=== PATIENT | male | born 1940 | race Caucasian/White ===

== ENCOUNTER 2018-06-29 14:13 | Inpatient (IN) | payer OTHER ==
--- NOTE | 2018-06-29 15:04 | PDOC ---
History of Present Illness <Winnie Ellison - Last Filed: 06/29/18 15:49> - General History Source: Patient, [facility] Records Exam Limitations: Language Barrier - History of Present Illness Initial Comments: 06/29/18 14:55 The patient is a 77M with a PMH of HLD, GERD, prostate CA, and CVA who presents to the ER from [facility] for a dialysis catheter problem. History is provided by [facility] records and a nurse at the [facility]. The [place] records state that the patient has a blocked permacath which was clotted after his last dialysis. He was last dialyzed 5 days ago. The patient has no acute complaints including CP, SOB, headache, or abdominal pain. <Guy Pugh - Last Filed: 07/04/18 07:22> - General Chief Complaint: Dialysis Shunt Problem Stated Complaint: Dialysis Shunt Problem Time Seen by Provider: 06/29/18 14:25 Past History <Winnie Ellison - Last Filed: 06/29/18 15:49> - Past Medical History Anemia: Yes Cancer: Yes (prostate) COPD: No CHF: No Disorders: Yes (ERSD) Hypercholesterolemia: Yes - Suicide/Smoking/Psychosocial Hx Smoking History: Never smoked Have you smoked in the past 12 months: No Information on smoking cessation initiated: No Hx Alcohol Use: No Drug/Substance Use Hx: No Substance Use Type: None <Guy Pugh - Last Filed: 07/04/18 07:22> - Past Medical History Allergies/Adverse Reactions: Allergies Allergy/AdvReac Type Severity Reaction Status Date / Time No Known Allergies Allergy Verified 06/29/18 14:38 Home Medications: Ambulatory Orders Acetaminophen [Acetaminophen 8 Hour] 650 mg PO Q6H PRN 06/29/18 Ascorbic Acid [Vitamin C -] 500 mg PO DAILY 06/29/18 Aspirin [ASA -] 1 tab PO DAILY 06/29/18 Atorvastatin Ca [Lipitor] 40 mg PO HS 06/29/18 Bicalutamide 50 mg PO DAILY 06/29/18 Bisacodyl [Correctol] 5 mg PO Q72H 06/29/18 Calcium Acetate [Phoslo -] 667 mg PO TIDCM 06/29/18 Collagenase Clostridium Hist. [Santyl] 1 applic TP BID 06/29/18 Famotidine 20 mg PO DAILY 06/29/18 Ferrous Sulfate 325 mg PO DAILY 06/29/18 Mineral Oil/Petrolat,Wht/Water [Eucerin (Small Jar) -] 1 applic TP TID 06/29/18 Multivitamins [Multivit ([facility] Formul[facility])] 1 tab PO DAILY 06/29/18 Nystatin Ointment [Mycostatin Ointment -] 1 applic TP BID 06/29/18 Sennosides [Senna] 8.6 mg PO HS 06/29/18 Vitamin B Comp W-C [Nephro-Francis -] 1 tablet PO DAILY 06/29/18 Zinc Sulfate 220 mg PO DAILY 06/29/18 Review of Systems - Review of Systems Able to Perform ROS?: No (Limited) Is the patient limited Hong Konger proficient: Yes <Guy Pugh - Last Filed: 07/04/18 07:22> *Physical Exam - Vital Signs Last Vital Signs Temp Pulse Resp BP Pulse Ox 97.4 F L 84 16 133/80 100 06/29/18 14:13 06/29/18 14:13 06/29/18 14:13 06/29/18 14:13 06/29/18 14:13 <Winnie Ellison - Last Filed: 06/29/18 15:49> - Vital Signs Last Vital Signs Temp Pulse Resp BP Pulse Ox 97.4 F L 84 16 133/80 100 06/29/18 14:13 06/29/18 14:13 06/29/18 14:13 06/29/18 14:13 06/29/18 14:13 - Physical Exam Comments: 06/29/18 15:11 GENERAL: Well developed, well nourished. Awake and alert. No acute distress. HEENT: Normocephalic, atraumatic. Hearing grossly normal. Moist mucous membranes. PERRLA, EOMI. No conjunctival pallor. Sclera are non-icteric. NECK: Supple. Full ROM. No JVD. CARDIOVASCULAR: Tachycardic with regular rhythm. No murmurs, rubs, or gallops. PULMONARY: No evidence of respiratory distress. Lungs clear to auscultation bilaterally. No wheezing, rales or rhonchi. ABDOMINAL: Soft. Non-tender. Non-distended. No rebound or guarding. GENITOURINARY: No CVA tenderness bilaterally. MUSCULOSKELETAL: Permacath located in R chest wall without surrounding edema or erythema. Normal range of motion at all joints. No bony deformities or tenderness. EXTREMITIES: No cyanosis. No clubbing. No edema. No calf tenderness or swelling. SKIN: Warm and dry. Normal capillary refill. No rashes. No jaundice. NEUROLOGICAL: Alert, awake, appropriate. Cranial nerves 2-12 grossly intact. Normal speech. PSYCHIATRIC: Cooperative. Good eye contact. Appropriate mood and affect. <Guy Pugh - Last Filed: 07/04/18 07:22> Heart Score/ECG Review #1 ECG reviewed & interpreted by me at: 15:44 General ECG Interpretation: Sinus Rhythm, Normal Rate, Normal Intervals, No acute ischemic changes Compared to previous ECG there are: Previous ECG unavail 06/29/18 15:44 A-fib vent rate 80 [place] - QRS 84 QTc 410 No STD or KAYLA No signs of acute ischemia <Guy Pugh - Last Filed: 07/04/18 07:22> ED Treatment Course - LABORATORY CBC & Chemistry Diagram: 06/29/18 14:45 06/29/18 14:45 - ADDITIONAL ORDERS Additional order review: Laboratory Results 06/29/18 06/29/18 14:45 14:45 PT with INR 13.10 H INR 1.11 H Sodium 135 L Potassium 5.5 H Chloride 102 Carbon Dioxide 23 Anion Gap 10 BUN 81 H Creat Clearance w eGFR 6.02 Random Glucose 125 H Calcium 7.3 L Total Bilirubin 0.5 AST 24 ALT < 6 L Alkaline Phosphatase 129 H Total Protein 7.0 Albumin 2.0 L 06/29/18 14:45 RBC 2.70 L MCV 91.0 MCHC 33.1 RDW 16.5 H MPV 8.3 Neutrophils % 74.3 Lymphocytes % 14.0 Monocytes % 8.5 Eosinophils % 2.6 Basophils % 0.6 - Consult/PCP Time Called: 15:00 (Paged Dr. Winsome crowe) - Additional Consults Time Called: 15:42 (Repaged Dr. Winsome Crowe) Time Called: 15:45 (Paged Dr. De La Cruz's service. They state he is in the OR currently but will send a page out. ) Consult/PCP: Albin De La Cruz <Winnie Ellison - Last Filed: 06/29/18 15:49> - LABORATORY CBC & Chemistry Diagram: 06/30/18 07:00 07/01/18 08:20 <Guy Pugh - Last Filed: 07/04/18 07:22> Medical Decision Making - Medical Decision Making 06/29/18 15:12 The patient is a 77M with a PMH of HLD and GERD who presents [facility] the ER from a [facility] for a clotted permacath. Pt's front desk, Dr. Prieto, has been called to obtain more information from the patient as information is limited form NH papers and nurses. Pending call back. EKG ordered as well as labs d/t pt's 5 days without dialysis. Pending labs and EKG. 06/29/18 16:10 K is 5.5. No EKG changes resembling hyperK. Dr. Prieto paged x 3. Dr. De La Cruz paged to declot permacath. 06/29/18 17:21 Attending d/w Dr. Alcantar, partner of pt's front desk, who agrees for admission for change in permacath and dialysis. Will microblog for admission. 06/29/18 18:42 Attending endorsed pt to [facility] for admission under Dr. Chakraborty. <Guy Pugh - Last Filed: 07/04/18 07:22> *DC/Admit/Observation/Transfer <Winnie Ellison - Last Filed: 06/29/18 15:49> - Discharge Dispostion Decision to Admit order: Yes <Guy Pugh - Last Filed: 07/04/18 07:22> Diagnosis at time of Disposition: Dialysis catheter clot or failure - Discharge Dispostion Disposition: [facility] Condition at time of disposition: Stable
--- NOTE | 2018-06-29 15:08 | PDOC ---
Attending Attestation - HPI HPI: The patient is a 77 year old male with a PMHx of HLD, GERD, prostate CA, and CVA who presents to the ER from [facility] for clogged dialysis Permacath. As per [place] records, patient has had a blocked Permacath since being dialyzed 5 days ago. History limited due to patients medical condition. <Winnie Ellison - Last Filed: 06/29/18 15:58> - Resident Resident Name: Guy Pugh - ED Attending Attestation I have performed the following: I have examined & evaluated the patient, The case was reviewed & discussed with the resident, I agree w/resident's findings & plan, Exceptions are as noted - Physicial Exam PE: 06/29/18 17:01 Patient is awake alert, afebrile, nontoxic appearing Normocephalic, atraumatic CTA Right chest Vas-Cath is noted without evidence of surrounding erythema or purulent discharge; Irregularly irregular Abdomen soft, nontender, nondistended Right lower extremity is hyperpigmented, warm to touch - Medical Decision Making 06/29/18 17:02 Patient is 77-year-old male with multiple comorbidities who presents to the ER with a clogged dialysis catheter. Is no indication for emergent dialysis. Case is 5.5 there is no evidence of acute pulmonary edema. There is no evidence of severe acidosis or uremia. We'll consult vascular surgery. Likely admission <Vernon Goss - Last Filed: 06/29/18 17:03>
[2018-06-29 15:22] LABS: BASO % 0.6 % (0-2.0); EOS % 2.6 % (0-4.5); HEMATOCRIT 24.5 % (35.4-49); HEMOGLOBIN 8.1 GM/dL (11.7-16.9); MCH 30.1 pg (25.7-33.7); MCHC 33.1 g/dl (32.0-35.9); MEAN PLT VOLUME 8.3 fl (7.5-11.1); MONO % 8.5 % (3.8-10.2); NEUT % 74.3 % (42.8-82.8); PLATELET COUNT 262 K/MM3 (134-434); RDW 16.5 % (11.9-15.9); WHITE BLOOD COUNT 7.7 K/mm3 (4.0-10.0)
[2018-06-29 15:23] LABS: INR 1.11 (0.83-1.09); PROTHROMBIN TIME (PATIENT) 13.1 SEC (9.7-13.0)
[2018-06-29 15:41] LABS: ALK PHOS 129 U/L (45-117); ANION GAP 10 MMOL/L (8-16); BILIRUBIN,TOTAL 0.5 mg/dL (0.2-1); BLOOD UREA NITROGEN 81 mg/dL (7-18); CALCIUM 7.3 mg/dL (8.5-10.1); CHLORIDE 102 mmol/L (98-107); CO2 23 mmol/L (21-32); GLUCOSE,RANDOM 125 mg/dL (74-106); POTASSIUM 5.5 mmol/L (3.5-5.1); SGOT/AST 24 U/L (15-37); SGPT/ALT < 6 U/L (13-61); SODIUM 135 mmol/L (136-145)
[2018-06-29 15:45] LABS: CREATININE 8.6 mg/dL (0.55-1.3)
--- NOTE | 2018-06-29 17:34 | PN ---
Progress Note (short form) - Note Progress Note: Vascular Surgery Permacath is malfunctioning. Will do permacath exchange jane. NPO past midnight. Albin barriga DO
--- NOTE | 2018-06-29 22:11 | HP ---
CHIEF COMPLAINT: Permacath blockage Customs Import Specialist: Dr. Schumacher HISTORY OF PRESENT ILLNESS: 77 year old male presents to the ED from [facility] for malfunctioning permacath. Patient is Czech-speaking and minimally verbal, history obtained from chart. 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 Patient is now in ESRD and on hemodialysis and has a suprapubic catheter. Patient fell out of bed one month ago and sustained a left hip fracture then underwent a left hip hemiarthroplsty on 05/15/18 at [facility]. Patient was discharged on 05/25/18 to [facility] rehab. He was re-admitted to the hospital on 06/16/18 dislocation of his left hip. He uderwent left hip adductor tenotomy with open reduction and revision of left hip hemiarthroplasty on 06/20/18. He was discharged back to rehab on 06/22/18. He was readmitted to the hospital the next day when deep wound cultures from the OR returned positive for MRSA. He was evaluated by ID and treated with IV vanco. He was d/patrica back to rehab 2 days later on 06/25/18. Rehab reporting that permacath non-functioning. Upon admission to ED, VSS, labs significant for elevated K at 5.5, BUN/Cr 81/ 8.6. ECG shows a-fib, T wave inversions in V1 and V2, and CXR unremarkable. Last dialyzed 5 days ago. Patient scheduled for permacath replacement tomorrow with vascular surgeon Dr. De La Cruz. Denies pain, sob, chest pain, n/v/d. Recent Travel: No PAST MEDICAL HISTORY: ESRD CVA Dementia Iron deficieny anemia HLD GERD Prostate Cancer PAST SURGICAL HISTORY: Left hip hemiarthroplasty 05/15/18 Left hip adductor tenotomy with open reduction and revision 06/20/18 Allergies No Known Allergies Allergy (Verified 06/29/18 14:38) HOME MEDICATIONS: REVIEW OF SYSTEMS Unable to obtain PHYSICAL EXAMINATION Vital Signs - 24 hr 06/29/18 14:13 Temperature 97.4 F L Pulse Rate 84 Respiratory 16 Rate Blood Pressure 133/80 O2 Sat by Pulse 100 Oximetry (%) GENERAL: Appear frail, awake, A&Ox 1 to person only, in no acute distress. HEAD: Normal with no signs of trauma. EYES: Pupils equal, round and reactive to light, extraocular movements intact, sclera anicteric, conjunctiva clear. No lid lag. EARS, NOSE, THROAT: nares patent, oropharynx clear without exudates. Moist mucous membranes. NECK: Normal range of motion, supple without lymphadenopathy, JVD, or masses. LUNGS: Breath sounds clear to auscultation bilaterally, slighty labored breathing HEART: Regular rate and rhythm, normal S1 and S2 + Grade III murmur ABDOMEN: Soft, nontender, not distended, normoactive bowel sounds, no guarding, no rebound, no masses. No hepatomegaly or splenomegaly. +suprapubic catheter, draining dark yellow urine MUSCULOSKELETAL: +Permacath to R chest wall covered with dpd, no drainage or edema to surrounding tissue, +hip abduction pillow between legs. UPPER EXTREMITIES: 2+ pulses, warm, well-perfused. No cyanosis. No clubbing. No peripheral edema. LOWER EXTREMITIES: Hyperpigmentation of RLL, 2+ pulses, warm, well-perfused. No calf tenderness. No peripheral edema. NEUROLOGICAL: No facial droop, tongue midline PSYCHIATRIC: Pleasant Good eye contact. SKIN: Warm, dry, normal turgor, no rashes or lesions noted, normal capillary refill. Laboratory Results - last 24 hr 06/29/18 06/29/18 06/29/18 14:45 14:45 14:45 WBC 7.7 RBC 2.70 L Hgb 8.1 L Hct 24.5 L MCV 91.0 MCH 30.1 MCHC 33.1 RDW 16.5 H Plt Count 262 MPV 8.3 Absolute Neuts (auto) 5.7 Neutrophils % 74.3 Lymphocytes % 14.0 Monocytes % 8.5 Eosinophils % 2.6 Basophils % 0.6 Nucleated RBC % 0 PT with INR 13.10 H INR 1.11 H Sodium 135 L Potassium 5.5 H Chloride 102 Carbon Dioxide 23 Anion Gap 10 BUN 81 H Creatinine 8.6 H* Creat Clearance w eGFR 6.02 Random Glucose 125 H Calcium 7.3 L Total Bilirubin 0.5 AST 24 ALT < 6 L Alkaline Phosphatase 129 H Total Protein 7.0 Albumin 2.0 L Blood Type Antibody Screen 06/29/18 14:45 WBC RBC Hgb Hct MCV MCH MCHC RDW Plt Count MPV Absolute Neuts (auto) Neutrophils % Lymphocytes % Monocytes % Eosinophils % Basophils % Nucleated RBC % PT with INR INR Sodium Potassium Chloride Carbon Dioxide Anion Gap BUN Creatinine Creat Clearance w eGFR Random Glucose Calcium Total Bilirubin AST ALT Alkaline Phosphatase Total Protein Albumin Blood Type B POSITIVE Antibody Screen Negative ECG -Atrial Fibrilation Vent rate 79 QRS 84 QT/QTc 358/410 CXR Large heart, sclerotic knob, prominent barb, fluid in the horizontal fissure and right jugular line with tip at junction of SVC and right atrium. No sign of infiltrate or failure. ASSESSMENT/PLAN: 77 year old male with a PMH significant for Dementia, CVA and advanced prostate cancer with mets to bladder, hydronephrosis presented to the ED with non- functioning permacath. Patient admitted for corrective surgery tomorrow. Permacath Blockage -replacement by Dr. Albin De La Cruz scheduled for tomorrow. -NPO after midnight ESRD -On hemodialysis, last dialysis 5 days ago -Schedule once permacath replaced A-Fib -?New onset, no prior study available and no mention of existing a-fib in chart. -On ASA 81mg -repeat ECG ordered -echo ordered -CHADS2 Score = 3, consider additional anticoagulation after procedure -Cardiac consult ordered Hyperkalemia -K 5.5 in ED -Kayexalate 15 mg x 1 -repeat BMP ordered PU right buttocks -Santyl BID -T&P q2hrs CVA -On ASA 81 mg -Hold tomorrow for procedure Iron deficiency anemia -H&H 8.09/29.5 -Continue FeSO4 325 qday -Monitor CBC HLD -Continue Atorvastatin 40 mg QHS GERD -Continue Zantic 150 mg Prostate Cancer -Continue Casodex 50 mg PO qday Constipation -Senna 8.6 qhs -Bisacodyl 5 mg q 72 hrs Tinea Pedis -Nystatin ointment to b/l feet BID Supplements -Multivitamin -Vitamin C 500 mg -Ca Acetate 667 mg TID -Nephro-radha -Zinc Sulfate 220 mg FEN --NPO until surgery --Electrolytes replete as indicated --Puree with nectar thickened liquid DVT Prophylaxis --Hold chemical prophylaxis for sx tomorrow Dispo: pt currently requires further inpatient care. FULL CODE Visit type - Emergency Visit Emergency Visit: Yes ED Registration Date: 06/29/18 Care time: The patient presented to the Emergency Department on the above date and was hospitalized for further evaluation of their emergent condition. - New Patient This patient is new to me today: Yes Date on this admission: 06/30/18 - Critical Care Critical Care patient: No
[2018-06-29] MEDS ORDERED: ACETAMINOPHEN 325 MG TABLET (FP) PO PRN (22:37)
[2018-06-30] MEDS ORDERED: SODIUM POLYSTYRENE SULFONATE 15 GM/60 ML BOTTLE PO ONE (00:36)
[2018-06-30] MEDS ORDERED: SODIUM POLYSTYRENE SULFONATE 15 GM/60 ML BOTTLE ONE (01:44)
[2018-06-30] MEDS: MINERAL OIL/PETROLAT/WATER TOPICAL CREAM 113 GM JAR TP SCH ×2 (06:55→13:38)
[2018-06-30] MEDS: CALCIUM ACETATE 667 MG CAPSULE (FP) PO SCH ×3 (08:22→17:15)
[2018-06-30 08:33] LABS: HEMATOCRIT 24.3 % (35.4-49); MCH 30.2 pg (25.7-33.7); MEAN CELL VOLUME 91.6 fl (80-96); MEAN PLT VOLUME 8.2 fl (7.5-11.1); PLATELET COUNT 231 K/MM3 (134-434); RBC 2.65 M/mm3 (4.00-5.60); WHITE BLOOD COUNT 6.5 K/mm3 (4.0-10.0)
[2018-06-30 09:15] LABS: ANION GAP 11 MMOL/L (8-16); BLOOD UREA NITROGEN 86 mg/dL (7-18); CALCIUM 7.3 mg/dL (8.5-10.1); CHLORIDE 102 mmol/L (98-107); CO2 24 mmol/L (21-32); GLUCOSE,RANDOM 77 mg/dL (74-106); POTASSIUM 5.6 mmol/L (3.5-5.1); SODIUM 136 mmol/L (136-145)
[2018-06-30 09:21] LABS: CREATININE 9.2 mg/dL (0.55-1.3)
[2018-06-30] MEDS ORDERED: PNEUMOC 13-VAL CONJ-DIP CRM/PF 0.5 ML DISP.SYRIN IM ONE (10:00)
[2018-06-30] MEDS ORDERED: BICALUTAMIDE 50 MG TABLET (FP) PO SCH (10:00)
[2018-06-30] MEDS ORDERED: ZINC SULFATE 220 MG CAPSULE (FP) PO SCH (10:00)
[2018-06-30] MEDS ORDERED: BISACODYL 5 MG TABLET.DR (FP) PO SCH (10:00)
[2018-06-30] MEDS ORDERED: NYSTATIN 100000 UNIT/GM TOPICAL OINTMENT 15 GM TUBE TP SCH (10:00)
[2018-06-30] MEDS ORDERED: FERROUS SO4 325 MG TABLET (FP) PO SCH (10:00)
[2018-06-30] MEDS ORDERED: MULTIVITAMINS (DAILY MVI) TABLET (FP) PO SCH (10:00)
[2018-06-30] MEDS ORDERED: ASCORBIC ACID 500 MG TABLET (FP) PO SCH (10:00)
[2018-06-30] MEDS ORDERED: COLLAGENASE CLOSTRIDIUM HIST. 30 GRAMS TUBE TP SCH (10:00)
[2018-06-30] MEDS ORDERED: RANITIDINE HCL 150 MG TABLET (FP) PO SCH (10:00)
[2018-06-30] MEDS ORDERED: ASPIRIN 81 MG CHEWABLE TABLETS PO SCH (10:00)
[2018-06-30] MEDS ORDERED: VITAMIN B COMP W-C 1 EA TABLET PO SCH (10:00)
--- NOTE | 2018-06-30 10:47 | PN ---
Progress Note (short form) - Note Progress Note: events noted Confused, dementia Vital Signs - 24 hr 06/29/18 06/29/18 06/29/18 14:13 18:38 22:12 Temperature 97.4 F L Pulse Rate 84 Pulse Rate [ 88 Right] Respiratory 16 16 Rate Blood Pressure 133/80 Blood Pressure 137/87 [Left] O2 Sat by Pulse 95 96 95 Oximetry (%) 06/29/18 06/30/18 06/30/18 22:32 00:55 02:55 Temperature 98 F 98.4 F Pulse Rate Pulse Rate [ 81 82 85 Right] Respiratory 16 21 H 17 Rate Blood Pressure Blood Pressure 141/90 131/65 123/63 [Left] O2 Sat by Pulse 96 98 Oximetry (%) 06/30/18 06/30/18 05:34 05:55 Temperature 98.3 F Pulse Rate 92 H Pulse Rate [ Right] Respiratory 20 Rate Blood Pressure 120/58 L Blood Pressure [Left] O2 Sat by Pulse 93 L Oximetry (%) Current Medications Generic Name Dose Route Start Last Admin Trade Name Freq PRN Reason Stop Dose Admin Acetaminophen 650 mg 06/29/18 22:37 Tylenol - PO Q6H PRN PAIN LEVEL 1-5 Ascorbic Acid 500 mg 06/30/18 10:00 06/30/18 10:46 Vitamin C - PO Not Given DAILY [facility] Aspirin 81 mg 06/30/18 10:00 06/30/18 10:47 Asa - PO Not Given DAILY [facility] Atorvastatin Calcium 40 mg 06/30/18 22:00 Lipitor - PO HS [facility] Bicalutamide 50 mg 06/30/18 10:00 06/30/18 10:47 Casodex - PO Not Given DAILY [facility] Bisacodyl 5 mg 06/30/18 10:00 06/30/18 10:46 Dulcolax - PO Not Given Q3D@1000 [facility] Calcium Acetate 667 mg 06/30/18 08:00 06/30/18 08:22 Phoslo - PO Not Given TIDCM [facility] Collagenase 1 applic 06/30/18 10:00 Santyl - TP BID [facility] Protocol Ferrous Sulfate 325 mg 06/30/18 10:00 06/30/18 10:46 Feosol - PO Not Given DAILY [facility] Multi-Ingredient Lotion 1 applic 06/30/18 06:00 06/30/18 06:55 Eucerin (Small Jar) - TP 1 applic TID [facility] Administration Multivit/Ca Carb/B Cmplx/FA/Prenat 1 tablet 06/30/18 10:00 06/30/18 10:46 Nephro-Francis - PO Not Given DAILY [facility] Multivitamins/Minerals/Vitamin C 1 tab 06/30/18 10:00 06/30/18 10:46 Tab-A-Vit - PO Not Given DAILY [facility] Nystatin 1 applic 06/30/18 10:00 Mycostatin Ointment - TP BID [facility] Ranitidine HCl 150 mg 06/30/18 10:00 06/30/18 10:46 Zantac - PO Not Given DAILY [facility] Senna 1 tab 06/30/18 22:00 Senna - PO HS [facility] Zinc Sulfate 220 mg 06/30/18 10:00 06/30/18 10:46 Orazinc - PO Not Given DAILY [facility] Laboratory Results - last 24 hr 06/29/18 06/29/18 06/29/18 14:45 14:45 14:45 WBC 7.7 RBC 2.70 L Hgb 8.1 L Hct 24.5 L MCV 91.0 MCH 30.1 MCHC 33.1 RDW 16.5 H Plt Count 262 MPV 8.3 Absolute Neuts (auto) 5.7 Neutrophils % 74.3 Lymphocytes % 14.0 Monocytes % 8.5 Eosinophils % 2.6 Basophils % 0.6 Nucleated RBC % 0 PT with INR 13.10 H INR 1.11 H Sodium 135 L Potassium 5.5 H Chloride 102 Carbon Dioxide 23 Anion Gap 10 BUN 81 H Creatinine 8.6 H* Creat Clearance w eGFR 6.02 Random Glucose 125 H Calcium 7.3 L Total Bilirubin 0.5 AST 24 ALT < 6 L Alkaline Phosphatase 129 H Total Protein 7.0 Albumin 2.0 L Blood Type Antibody Screen 06/29/18 06/30/18 06/30/18 14:45 00:54 07:00 WBC 6.5 RBC 2.65 L Hgb 8.0 L Hct 24.3 L MCV 91.6 MCH 30.2 MCHC 33.0 RDW 17.0 H Plt Count 231 MPV 8.2 Absolute Neuts (auto) Neutrophils % Lymphocytes % Monocytes % Eosinophils % Basophils % Nucleated RBC % PT with INR INR Sodium Potassium Chloride Carbon Dioxide Anion Gap BUN Creatinine Creat Clearance w eGFR Random Glucose Calcium Total Bilirubin AST ALT Alkaline Phosphatase Total Protein Albumin Blood Type B POSITIVE B POSITIVE Antibody Screen Negative 06/30/18 07:00 WBC RBC Hgb Hct MCV MCH MCHC RDW Plt Count MPV Absolute Neuts (auto) Neutrophils % Lymphocytes % Monocytes % Eosinophils % Basophils % Nucleated RBC % PT with INR INR Sodium 136 Potassium 5.6 H Chloride 102 Carbon Dioxide 24 Anion Gap 11 BUN 86 H Creatinine 9.2 H* Creat Clearance w eGFR 5.57 Random Glucose 77 Calcium 7.3 L Total Bilirubin AST ALT Alkaline Phosphatase Total Protein Albumin Blood Type Antibody Screen S1 and S2 regular Lungs sounds decreased Abdomen soft, nontender No edema Plan For removal of permacath Check blood cultures patient will need dialysis after permacath removal/exchange
--- NOTE | 2018-06-30 12:15 | EKG ---
Test Reason : Blood Pressure : / mmHG Vent. Rate : 084 BPM Atrial Rate : 441 BPM P-R Int : 000 ms QRS Dur : 090 ms QT Int : 362 ms P-R-T Axes : 000 -02 009 degrees QTc Int : 427 ms ATRIAL FIBRILLATION ABNORMAL ECG WHEN COMPARED WITH ECG OF 30-JUN-2018 00:23, BORDERLINE CRITERIA FOR ANTEROSEPTAL INFARCT ARE NO LONGER PRESENT Confirmed by MARK MASTERSON MD ([id number]) on 06/30/2018 12:15:01 PM Referred By: Confirmed By:MARK MASTERSON MD
--- NOTE | 2018-06-30 12:17 | EKG ---
Test Reason : Blood Pressure : / mmHG Vent. Rate : 079 BPM Atrial Rate : 156 BPM P-R Int : 000 ms QRS Dur : 084 ms QT Int : 358 ms P-R-T Axes : 000 000 023 degrees QTc Int : 410 ms ATRIAL FIBRILLATION NONSPECIFIC ST ABNORMALITY ABNORMAL ECG NO PREVIOUS ECGS AVAILABLE Confirmed by MARK MASTERSON MD ([id number]) on 06/30/2018 12:17:08 PM Referred By: Confirmed By:MARK MASTERSON MD
--- NOTE | 2018-06-30 15:09 | CONSULT ---
Consultation: CONSULT REQUEST: Nephrology Consult HISTORY OF PRESENT ILLNESS: 77yo M with significant history of ESRD, dementia, CVA, anemia, and Prostate Ca (Mets to bladder) who presented to the ED from [facility] for malfunctioning permacath device. Pt's HPI is difficult to obtain due to dementia and most information gathered from chart. Pt is minimally verbal, speaks [place] Islander, and is only oriented to self. Pt's last HD was 5 days ago and it was noted on ED labs for elevation of K+ to 5.5 with T-wave inversions. Dr. De La Cruz (vascular) had been consulted for the access and is planning to perform his permacath exchange today. PMHx: ESRD CVA Dementia Anemia (iron deficiency and anemia of chronic dz) HLD GERD Prostate Ca (mets to bladder) PSHx: L hip hemiarthroplasty (05/2018) L Hip adductor open reduction and revision (06/2018) SoHx: Unobtainable Allergies: NKDA REVIEW OF SYSTEMS: Unable to obtain due to dementia PHYSICAL EXAMINATION Vital Signs - 24 hr 06/29/18 06/29/18 06/29/18 18:38 22:12 22:32 Temperature 98 F Pulse Rate Pulse Rate [ 88 81 Right] Respiratory 16 16 Rate Blood Pressure Blood Pressure 137/87 141/90 [Left] O2 Sat by Pulse 96 95 96 Oximetry (%) 06/30/18 06/30/18 06/30/18 00:55 02:55 05:34 Temperature 98.4 F 98.3 F Pulse Rate 92 H Pulse Rate [ 82 85 Right] Respiratory 21 H 17 20 Rate Blood Pressure 120/58 L Blood Pressure 131/65 123/63 [Left] O2 Sat by Pulse 98 Oximetry (%) 06/30/18 06/30/18 06/30/18 05:55 09:00 10:00 Temperature 97.8 F Pulse Rate 86 Pulse Rate [ Right] Respiratory 20 Rate Blood Pressure 129/66 Blood Pressure [Left] O2 Sat by Pulse 93 L 95 Oximetry (%) GENERAL: NAD, awake, speaks minimally, oriented to self only, laying in bed. HEENT: Nc/AT, MMM, sclera anicteric NECK: No JVD LUNGS: CTA bilaterally however poor inspiratory effort. No wheezes, and no crackles. No accessory muscle use. HEART: RRR, normal S1 and S2 without murmur ABDOMEN: Soft, Nt/ND, normoactive BS, no guarding MUSCULOSKELETAL: Limited ROM in upper extremity EXTREMITIES: 2+ DP pulses, warm, well-perfused. No peripheral edema. SKIN: Warm, dry, no rashes; ankle offloaders noted Laboratory Results - last 24 hr 06/29/18 06/29/18 06/29/18 14:45 14:45 14:45 WBC 7.7 RBC 2.70 L Hgb 8.1 L Hct 24.5 L MCV 91.0 MCH 30.1 MCHC 33.1 RDW 16.5 H Plt Count 262 MPV 8.3 Absolute Neuts (auto) 5.7 Neutrophils % 74.3 Lymphocytes % 14.0 Monocytes % 8.5 Eosinophils % 2.6 Basophils % 0.6 Nucleated RBC % 0 PT with INR 13.10 H INR 1.11 H Sodium 135 L Potassium 5.5 H Chloride 102 Carbon Dioxide 23 Anion Gap 10 BUN 81 H Creatinine 8.6 H* Creat Clearance w eGFR 6.02 Random Glucose 125 H Calcium 7.3 L Total Bilirubin 0.5 AST 24 ALT < 6 L Alkaline Phosphatase 129 H Total Protein 7.0 Albumin 2.0 L Blood Type Antibody Screen 06/29/18 06/30/18 06/30/18 14:45 00:54 07:00 WBC 6.5 RBC 2.65 L Hgb 8.0 L Hct 24.3 L MCV 91.6 MCH 30.2 MCHC 33.0 RDW 17.0 H Plt Count 231 MPV 8.2 Absolute Neuts (auto) Neutrophils % Lymphocytes % Monocytes % Eosinophils % Basophils % Nucleated RBC % PT with INR INR Sodium Potassium Chloride Carbon Dioxide Anion Gap BUN Creatinine Creat Clearance w eGFR Random Glucose Calcium Total Bilirubin AST ALT Alkaline Phosphatase Total Protein Albumin Blood Type B POSITIVE B POSITIVE Antibody Screen Negative 06/30/18 07:00 WBC RBC Hgb Hct MCV MCH MCHC RDW Plt Count MPV Absolute Neuts (auto) Neutrophils % Lymphocytes % Monocytes % Eosinophils % Basophils % Nucleated RBC % PT with INR INR Sodium 136 Potassium 5.6 H Chloride 102 Carbon Dioxide 24 Anion Gap 11 BUN 86 H Creatinine 9.2 H* Creat Clearance w eGFR 5.57 Random Glucose 77 Calcium 7.3 L Total Bilirubin AST ALT Alkaline Phosphatase Total Protein Albumin Blood Type Antibody Screen Active Medications Generic Name Dose Route Start Last Admin Trade Name Freq PRN Reason Stop Dose Admin Acetaminophen 650 mg 06/29/18 22:37 Tylenol - PO Q6H PRN PAIN LEVEL 1-5 Ascorbic Acid 500 mg 06/30/18 10:00 06/30/18 10:46 Vitamin C - PO Not Given DAILY [facility] Aspirin 81 mg 06/30/18 10:00 06/30/18 10:47 Asa - PO Not Given DAILY [facility] Atorvastatin Calcium 40 mg 06/30/18 22:00 Lipitor - PO HS [facility] Bicalutamide 50 mg 06/30/18 10:00 06/30/18 10:47 Casodex - PO Not Given DAILY [facility] Bisacodyl 5 mg 06/30/18 10:00 06/30/18 10:46 Dulcolax - PO Not Given Q3D@1000 [facility] Calcium Acetate 667 mg 06/30/18 08:00 06/30/18 12:31 Phoslo - PO Not Given TIDCM [facility] Collagenase 1 applic 06/30/18 10:00 06/30/18 13:37 Santyl - TP 1 applic BID [facility] Administration Protocol Ferrous Sulfate 325 mg 06/30/18 10:00 06/30/18 10:46 Feosol - PO Not Given DAILY [facility] Multi-Ingredient Lotion 1 applic 06/30/18 06:00 06/30/18 13:38 Eucerin (Small Jar) - TP 1 applic TID [facility] Administration Multivit/Ca Carb/B Cmplx/FA/Prenat 1 tablet 06/30/18 10:00 06/30/18 10:46 Nephro-Francis - PO Not Given DAILY [facility] Multivitamins/Minerals/Vitamin C 1 tab 06/30/18 10:00 06/30/18 10:46 Tab-A-Vit - PO Not Given DAILY [facility] Nystatin 1 applic 06/30/18 10:00 06/30/18 13:37 Mycostatin Ointment - TP 1 applic BID [facility] Administration Ranitidine HCl 150 mg 06/30/18 10:00 06/30/18 10:46 Zantac - PO Not Given DAILY [facility] Senna 1 tab 06/30/18 22:00 Senna - PO HS [facility] Zinc Sulfate 220 mg 06/30/18 10:00 06/30/18 10:46 Orazinc - PO Not Given DAILY [facility] ASSESSMENT/PLAN: ESRD on HD Permacath malfunction Hyperkalemia Atrial fibrillation Anemia HLD Prostate Ca --Vascular surgery to exchange permacath today --Once exchange is performed and new access established can plan for HD today --Monitor K+ with AM labs post HD session --Continue rest of mgmt per primary team Dispo: HD for today. Thank you for this consultative opportunity. Case discussed with Dr. Katharine Vargas, DO - IM PGY-2 Visit type - Emergency Visit Emergency Visit: Yes ED Registration Date: 06/29/18 Care time: The patient presented to the Emergency Department on the above date and was hospitalized for further evaluation of their emergent condition. - New Patient This patient is new to me today: Yes Date on this admission: 06/30/18 - Critical Care Critical Care patient: No
[2018-06-30] MEDS ORDERED: SODIUM CHLORIDE 250 ML IV PRN ×2 (15:30→22:56)
--- NOTE | 2018-06-30 15:57 | CON.CARD ---
Consult Consult Specialty:: Cardiology Referred by:: Aden Reason for Consultation:: afib - History of Present Illness Chief Complaint: blocked permacath History of Present Illness: 77M h/o dementia, CVA, ESRD on HD, anemia, HLD p/w malfunctioning permacath, afib on EKG. Pt unable to give history due to mental status, unclear if afib is new dx. Not on anticoagulation. Of note had history of recent fall from bed with hip fracture one month ago. Has permacath replacement today. Also noted to have K 5.5 in ED, received kayexalate. - Alcohol/Substance Use Hx Alcohol Use: No - Smoking History Smoking history: Never smoked Have you smoked in the past 12 months: No Home Medications - Allergies Allergies/Adverse Reactions: Allergies Allergy/AdvReac Type Severity Reaction Status Date / Time No Known Allergies Allergy Verified 06/29/18 14:38 - Home Medications Home Medications: Ambulatory Orders Acetaminophen [Acetaminophen 8 Hour] 650 mg PO Q6H PRN 06/29/18 Ascorbic Acid [Vitamin C -] 500 mg PO DAILY 06/29/18 Aspirin [ASA -] 1 tab PO DAILY 06/29/18 Atorvastatin Ca [Lipitor] 40 mg PO HS 06/29/18 Bicalutamide 50 mg PO DAILY 06/29/18 Bisacodyl [Correctol] 5 mg PO Q72H 06/29/18 Calcium Acetate [Phoslo -] 667 mg PO TIDCM 06/29/18 Collagenase Clostridium Hist. [Santyl] 1 applic TP BID 06/29/18 Famotidine 20 mg PO DAILY 06/29/18 Ferrous Sulfate 325 mg PO DAILY 06/29/18 Mineral Oil/Petrolat,Wht/Water [Eucerin] 1 applic TP TID 06/29/18 Multivitamins [Tab-A-Vit -] 1 tab PO DAILY 06/29/18 Nystatin Ointment [Mycostatin Ointment -] 1 applic TP BID 06/29/18 Sennosides [Senna] 8.6 mg PO HS 06/29/18 Vitamin B Comp W-C [Nephro-Francis -] 1 tablet PO DAILY 06/29/18 Zinc Sulfate 220 mg PO DAILY 06/29/18 Family Disease History - Family Disease History Family History: Unable to Obtain Review of Systems Unable to obtain ROS, reason: dementia Vital Signs: Vital Signs Temperature 97.8 F 06/30/18 10:00 Pulse Rate 86 06/30/18 10:00 Respiratory Rate 20 06/30/18 10:00 Blood Pressure 129/66 06/30/18 10:00 O2 Sat by Pulse Oximetry (%) 95 06/30/18 09:00 Constitutional: Yes: No Distress, Calm Eyes: Yes: Conjunctiva Clear, EOM Intact HENT: Yes: Atraumatic, Normocephalic Neck: Yes: Supple, Trachea Midline Respiratory: Yes: CTA Bilaterally (auscultated anteriorly, poor effort) Gastrointestinal: Yes: Normal Bowel Sounds, Soft Renal/: Yes: WNL Cardiovascular: Yes: Pulse Irregular JVD: No Carotid Bruit: No Heart Sounds: Yes: S1, S2 Edema: No Peripheral Pulses WNL: Yes Peripheral Pulses: 2+ Left Doralis Pedis, 2+ Right Dorsalis Pedis Integumentary: No: Jaundice Neurological: Yes: Alert, Oriented Psychiatric: Yes: Alert - Other Data Labs, Other Data: CBC, BMP 06/30/18 07:00 06/30/18 07:00 INR, PTT INR 1.11 (0.83-1.09) H 06/29/18 14:45 Assessment/Plan EKG afib, rate controlled Afib - [id number] score of 4, anticoagulation indicated, was on aspirin prior - rate controlled not on nitesh blocking agents - echocardiogram ordered - given fall risk (recent fall with hip fx) will need to address risks/benefits of anticoagulation, hold today after catheter replacement ESRD on HD, hyperkalemia - plan for HD, catheter replaced today HLD - continue statin
[2018-06-30] MEDS ORDERED: LIDOCAINE HCL 1%, 10 MG/ML (20ML VIAL) ONE (16:57)
--- NOTE | 2018-06-30 16:59 | PN ---
Teaching Attending Note Name of Resident: Seng Vargas (Nephrology) ATTENDING PHYSICIAN STATEMENT I saw and evaluated the patient. I reviewed the resident's note and discussed the case with the resident. I agree with the resident's findings and plan as documented. Renal Pt is a 77 year old male with pmhx of ESRD, HLD, GERD, CVA and prostate cancer who was sent to the ER for a clotted HD catheter. Pt is a poor historian and unable to give much history. Chart was reviewed. pmhx esrd cva hld psh permacath nkda social lives in co Laboratory Tests 06/29/18 06/29/18 06/30/18 14:45 14:45 07:00 Hgb 8.1 L 8.0 L Sodium Potassium 5.5 H Carbon Dioxide BUN 81 H Creatinine 8.6 H* 06/30/18 07:00 Hgb Sodium 136 Potassium 5.6 H Carbon Dioxide 24 BUN 86 H Creatinine 9.2 H* Current Medications Generic Name Dose Route Start Last Admin Trade Name Freq PRN Reason Stop Dose Admin Acetaminophen 650 mg 06/29/18 22:37 Tylenol - PO Q6H PRN PAIN LEVEL 1-5 Ascorbic Acid 500 mg 06/30/18 10:00 06/30/18 10:46 Vitamin C - PO Not Given DAILY [facility] Aspirin 81 mg 06/30/18 10:00 06/30/18 10:47 Asa - PO Not Given DAILY [facility] Atorvastatin Calcium 40 mg 06/30/18 22:00 Lipitor - PO HS [facility] Bicalutamide 50 mg 06/30/18 10:00 06/30/18 10:47 Casodex - PO Not Given DAILY [facility] Bisacodyl 5 mg 06/30/18 10:00 06/30/18 10:46 Dulcolax - PO Not Given Q3D@1000 [facility] Calcium Acetate 667 mg 06/30/18 08:00 06/30/18 12:31 Phoslo - PO Not Given TIDCM [facility] Collagenase 1 applic 06/30/18 10:00 06/30/18 13:37 Santyl - TP 1 applic BID [facility] Administration Protocol Ferrous Sulfate 325 mg 06/30/18 10:00 06/30/18 10:46 Feosol - PO Not Given DAILY [facility] Sodium Chloride 250 mls @ 3,000 mls/hr 06/30/18 15:30 Normal Saline - IV 07/01/18 15:30 PRN PRN Hypotension during Dialysis Multi-Ingredient Lotion 1 applic 06/30/18 06:00 06/30/18 13:38 Eucerin (Small Jar) - TP 1 applic TID [facility] Administration Multivit/Ca Carb/B Cmplx/FA/Prenat 1 tablet 06/30/18 10:00 06/30/18 10:46 Nephro-Francis - PO Not Given DAILY [facility] Multivitamins/Minerals/Vitamin C 1 tab 06/30/18 10:00 06/30/18 10:46 Tab-A-Vit - PO Not Given DAILY [facility] Nystatin 1 applic 06/30/18 10:00 06/30/18 13:37 Mycostatin Ointment - TP 1 applic BID [facility] Administration Ranitidine HCl 150 mg 06/30/18 10:00 06/30/18 10:46 Zantac - PO Not Given DAILY [facility] Senna 1 tab 06/30/18 22:00 Senna - PO HS [facility] Zinc Sulfate 220 mg 06/30/18 10:00 06/30/18 10:46 Orazinc - PO Not Given DAILY [facility] cardio s1s2 pulm clear Gi soft ext neg edema neuro confused Impression 1. ESRD 2. clotted permacath 3. hyperkalemia 4. prostate cancer 5. dementia 6. cva Plan - vascular to change catheter - arranged for HD today - repeat labs in am - will follow Dr Alcantar
[2018-06-30] MEDS ORDERED: PROPOFOL 20 ML ONE (17:39)
[2018-06-30] MEDS ORDERED: SUCCINYLCHOLINE CHLORIDE 200 MG/10 ML VIAL ONE (17:39)
[2018-06-30] MEDS ORDERED: MIDAZOLAM HCL 2 MG/2 ML SINGLE DOSE VIAL ONE ×2 (17:39)
[2018-06-30] MEDS ORDERED: ceFAZolin SODIUM 1 GM VIAL ONE (17:41)
[2018-06-30] MEDS ORDERED: ceFAZolin SODIUM 1 GM VIAL IVPB ONE (17:42)
[2018-06-30] MEDS ORDERED: LIDOCAINE HCL 1%, 10 MG/ML (20ML VIAL) INF ONE (17:44)
--- NOTE | 2018-06-30 18:05 | OP ---
Operative Note - Note: Operative Date: 06/30/18 Pre-Operative Diagnosis: clotted permacath Operation: permacath exchange Post-Operative Diagnosis: Same as Pre-op Surgeon: Albin De La Cruz Anesthesia: Fractional Estimated Blood Loss (mls): 20 Operative Report Dictated: Yes
[2018-06-30] MEDS ORDERED: ACETAMINOPHEN 325 MG TABLET (FP) PO PRN (18:26)
[2018-06-30 19:25] VITALS: BMI 26.3
[2018-06-30] MEDS ORDERED: PT OWN MED DRAWER 7, Y5N ONE (21:05)
[2018-06-30] MEDS ORDERED: ATORVASTATIN CA 40 MG TABLET (FP) PO SCH ×2 (22:00)
[2018-06-30] MEDS ORDERED: MINERAL OIL/PETROLAT/WATER TOPICAL CREAM 113 GM JAR TP SCH (22:00)
[2018-06-30] MEDS ORDERED: SENNOSIDES 8.6MG TABLET (FP) PO SCH ×2 (22:00)
[2018-07-01] MEDS: COLLAGENASE CLOSTRIDIUM HIST. 30 GRAMS TUBE TP SCH ×2 (02:24→10:35)
[2018-07-01] MEDS: NYSTATIN 100000 UNIT/GM TOPICAL OINTMENT 15 GM TUBE TP SCH ×2 (02:37→10:35)
[2018-07-01] MEDS: MINERAL OIL/PETROLAT/WATER TOPICAL CREAM 113 GM JAR TP SCH ×3 (02:53→13:17)
--- NOTE | 2018-07-01 08:36 | OP ---
DATE OF OPERATION: 06/30/2018 PREOPERATIVE DIAGNOSIS: A malfunctioning right anterior permacath, clotted permacath. POSTOPERATIVE DIAGNOSIS: A malfunctioning right anterior permacath, clotted permacath. PROCEDURE: Permacath exchange. SURGEON: Albin Cannon MD ANESTHESIA: Fractional. BLOOD LOSS: 20 mL. INDICATIONS: The patient is a 77-year-old male who comes into the ER with a clotted permacatheter It was noted that he would need to have it exchanged. Family was consented for the procedure understanding all risks, benefits, and alternatives. He was then taken to the operating room. DESCRIPTION OF PROCEDURE: Once in the operating suite, he was placed on the operating table in the supine manner, and the area of the right neck and chest was prepped and draped in a sterile surgical manner. We then ahead and injected 10 mL of Lidocaine 1% around the cuff of the catheter, and we then dissected the cuff using a mosquito clamp, and the catheter was freed. We then placed a 0.035 floppy guidewire through the catheter, and the catheter was removed. We then exchanged gloves for sterility purposes. The catheter that was removed was a 32 length catheter. We then put in a 35 length catheter over the guidewire until the main neck of the catheter was nice and smooth. We then emily back on each port of the catheter, and there was good flow. Heparinized saline was injected and 2000 units of IV heparin were injected. Then, 4-0 Biosyn were used, and 2 simple sutures were placed at the exit site. A 3-0 nylon was used, and the catheter was attached to the skin. BioPatch, 4x4, and Tegaderm were placed. The patient tolerated the procedure with no complications. Patient transferred to PACU in stable condition where a chest x-ray will be obtained. ALBIN CANNON DO [id number]
[2018-07-01] MEDS: CALCIUM ACETATE 667 MG CAPSULE (FP) PO SCH ×3 (08:43→17:09)
[2018-07-01 09:24] LABS: ANION GAP 8 MMOL/L (8-16); BLOOD UREA NITROGEN 41 mg/dL (7-18); CALCIUM 7.4 mg/dL (8.5-10.1); CHLORIDE 101 mmol/L (98-107); CO2 31 mmol/L (21-32); CREATININE 5.4 mg/dL (0.55-1.3); GLUCOSE,RANDOM 79 mg/dL (74-106); POTASSIUM 4.2 mmol/L (3.5-5.1); SODIUM 139 mmol/L (136-145)
[2018-07-01] MEDS ORDERED: ZINC SULFATE 220 MG CAPSULE (FP) PO SCH (10:00)
[2018-07-01] MEDS ORDERED: RANITIDINE HCL 150 MG TABLET (FP) PO SCH (10:00)
[2018-07-01] MEDS ORDERED: MULTIVITAMINS (DAILY MVI) TABLET (FP) PO SCH (10:00)
[2018-07-01] MEDS ORDERED: FERROUS SO4 325 MG TABLET (FP) PO SCH (10:00)
[2018-07-01] MEDS ORDERED: BICALUTAMIDE 50 MG TABLET (FP) PO SCH (10:00)
[2018-07-01] MEDS ORDERED: VITAMIN B COMP W-C 1 EA TABLET PO SCH (10:00)
[2018-07-01] MEDS ORDERED: ASPIRIN 81 MG CHEWABLE TABLETS PO SCH (10:00)
[2018-07-01] MEDS ORDERED: ASCORBIC ACID 500 MG TABLET (FP) PO SCH (10:00)
--- NOTE | 2018-07-01 10:09 | ECHO ---
Name: TOI YORK Exam:Adult Echocardiogram Study Date: 07/01/2018 09:05 AM Age: 77 yrs Reason For Study: atrial flutter Height: 72 in Weight: 194 lb BSA: 2.1 m2 MMode/2D Measurements & Calculations IVSd: 0.80 cm Ao root diam: 3.1 cm LVIDd: 5.3 cm LA dimension: 5.0 cm LVIDs: 3.8 cm ACS: 2.3 cm LVPWd: 0.95 cm IVSs: 1.1 cm LVPWs: 1.2 cm EDV(Teich): 137.5 ml ESV(Teich): 63.1 ml Doppler Measurements & Calculations MV V2 max: 176.3 cm/sec MV P1/2t max felix: 172.5 cm/sec MV max P.4 mmHg MV P1/2t: 121.1 msec MV V2 mean: 112.5 cm/sec MV mean P.8 mmHg MVA(P1/2t): 1.8 cm2 MV V2 VTI: 37.4 cm MV dec slope: 417.4 cm/sec2 Ao V2 max: 128.0 cm/sec MR max felix: 415.2 cm/sec Ao max P.6 mmHg MR max P.0 mmHg Ao V2 mean: 89.4 cm/sec Ao mean P.5 mmHg Ao V2 VTI: 21.7 cm TR max felix: 266.5 cm/sec Med Peak E' Felix: 4.6 cm/sec TR max P.4 mmHg Lat Peak E' Felix: 9.8 cm/sec Left Ventricle Left ventricular systolic function is normal. Ejection Fraction = 50%. Right Ventricle The right ventricle is mild to moderately dilated. The right ventricular systolic function is mildly reduced. Atria The left atrium is severely dilated. The right atrium is moderately dilated. Mitral Valve The mitral valve appears rheumatic. There is mild mitral stenosis. There is mild mitral regurgitation . Tricuspid Valve There is moderate tricuspid regurgitation. Right ventricular systolic pressure is normal. Aortic Valve The aortic valve is trileaflet. No hemodynamically significant valvular aortic stenosis. No aortic regurgitation is present. Pulmonic Valve The pulmonic valve is not well seen, but is grossly normal. There is no pulmonic valvular stenosis. T here is no pulmonic valvular regurgitation. Great Vessels Mild aortic root dilatation. Pericardium/Pleura There is no pericardial effusion. Interpretation Summary Left ventricular systolic function is normal. Ejection Fraction = 50%. The right ventricle is mild to moderately dilated. The right ventricular systolic function is mildly reduced. The left atrium is severely dilated. The right atrium is moderately dilated. The mitral valve appears rheumatic. There is mild mitral stenosis. There is mild mitral regurgitation. There is moderate tricuspid regurgitation. Right ventricular systolic pressure is normal. Mild aortic root dilatation. There is no pericardial effusion. MD Baptiste *Tyler 07/01/2018 10:08 AM
[2018-07-01] MEDS ORDERED: PT OWN MED DRAWER 7, Y5N ONE (10:12)
--- NOTE | 2018-07-01 11:00 | PN ---
Physical Exam: SUBJECTIVE: Permacath exchanged yesterday with afternoon dialysis 2Kgs pulled off. Pt tolerated well. OBJECTIVE: Vital Signs Period Temp Pulse Resp BP Sys/Estevez Pulse Ox Last 24 Hr 97.7 F-99.2 F 81-95 15-23 116-138/49-75 96-100 GENERAL: NAD, sleeping, arousable, laying in bed. HEENT: Nc/AT, [id number]-beblz, sclera anicteric NECK: No JVD LUNGS: Poor inspiratory effort; CTA otherwise. No wheezes, and no crackles. No accessory muscle use. HEART: RRR, normal S1 and S2 without murmur ABDOMEN: Soft, Nt/ND, normoactive BS, no guarding : Uriostegui in place draining clear-yellow fluid; about 50-75cc in collection bag currently EXTREMITIES: 2+ DP pulses, warm, well-perfused. No peripheral edema. SKIN: Warm, dry, no rashes; ankle off-cashier associate noted Laboratory Results - last 24 hr 07/01/18 08:20 Sodium 139 Potassium 4.2 Chloride 101 Carbon Dioxide 31 Anion Gap 8 BUN 41 H Creatinine 5.4 H Creat Clearance w eGFR 10.30 Random Glucose 79 Calcium 7.4 L Active Medications Generic Name Dose Route Start Last Admin Trade Name Freq PRN Reason Stop Dose Admin Acetaminophen 650 mg 06/30/18 18:26 Tylenol - PO Q6H PRN PAIN LEVEL 1-5 Ascorbic Acid 500 mg 07/01/18 10:00 07/01/18 10:30 Vitamin C - PO 500 mg DAILY [facility] Administration Aspirin 81 mg 07/01/18 10:00 07/01/18 10:30 Asa - PO 81 mg DAILY [facility] Administration Atorvastatin Calcium 40 mg 06/30/18 22:00 07/01/18 02:23 Lipitor - PO Not Given HS [facility] Bicalutamide 50 mg 07/01/18 10:00 07/01/18 10:29 Casodex - PO 50 mg DAILY [facility] Administration Bisacodyl 5 mg 07/03/18 10:00 Dulcolax - PO Q3D@1000 [facility] Calcium Acetate 667 mg 07/01/18 08:00 07/01/18 08:43 Phoslo - PO 667 mg TIDCM [facility] Administration Collagenase 1 applic 06/30/18 22:00 07/01/18 10:35 Santyl - TP 1 applic BID [facility] Administration Protocol Ferrous Sulfate 325 mg 07/01/18 10:00 07/01/18 10:31 Feosol - PO 325 mg DAILY [facility] Administration Sodium Chloride 250 mls @ 3,000 mls/hr 06/30/18 22:56 Normal Saline - IV 07/01/18 22:55 PRN PRN Hypotension during Dialysis Multi-Ingredient Lotion 1 applic 06/30/18 22:00 07/01/18 06:15 Eucerin (Small Jar) - TP 1 applic TID [facility] Administration Multivit/Ca Carb/B Cmplx/FA/Prenat 1 tablet 07/01/18 10:00 07/01/18 10:29 Nephro-Francis - PO 1 tablet DAILY [facility] Administration Multivitamins/Minerals/Vitamin C 1 tab 07/01/18 10:00 07/01/18 10:30 Tab-A-Vit - PO 1 tab DAILY [facility] Administration Nystatin 1 applic 06/30/18 22:00 07/01/18 10:35 Mycostatin Ointment - TP 1 applic BID [facility] Administration Ranitidine HCl 150 mg 07/01/18 10:00 07/01/18 10:30 Zantac - PO 150 mg DAILY [facility] Administration Senna 1 tab 06/30/18 22:00 07/01/18 02:24 Senna - PO Not Given HS [facility] Zinc Sulfate 220 mg 07/01/18 10:00 07/01/18 10:31 Orazinc - PO 220 mg DAILY [facility] Administration ASSESSMENT/PLAN: ESRD on HD (M/W/F) Permacath malfunction (resolved) Hyperkalemia (resolved) Atrial fibrillation Anemia HLD Prostate Ca --Permacath exchanged with tolerance of dialysis yesterday afternoon --Dialyze pt today so he can maintain regular schedule (M/W/F) --will order Epogen for dialysis; will need to address on outpatient basis for goal of Hgb 10.0 --After dialysis today can discharge back to [facility] from nephrology standpoint Dispo: HD for today. Thank you for this consultative opportunity. Case discussed with Dr. Alcantar and primary team Seng Vargas, DO - IM PGY-2 Visit type - Emergency Visit Emergency Visit: Yes ED Registration Date: 06/29/18 Care time: The patient presented to the Emergency Department on the above date and was hospitalized for further evaluation of their emergent condition. - New Patient This patient is new to me today: No - Critical Care Critical Care patient: No
[2018-07-01] MEDS ORDERED: EPOETIN ALFA 10,000 UNIT/1 ML VIAL IVPUSH ONE (11:19)
--- NOTE | 2018-07-01 11:31 | PN ---
Teaching Attending Note Name of Resident: Seng Vargas (Nephrology) ATTENDING PHYSICIAN STATEMENT I saw and evaluated the patient. I reviewed the resident's note and discussed the case with the resident. I agree with the resident's findings and plan as documented. Renal Pt seen and examined at bedside. He appears comfortable. Laboratory Tests 06/30/18 07:00 Hgb 8.0 L Current Medications Generic Name Dose Route Start Last Admin Trade Name Freq PRN Reason Stop Dose Admin Acetaminophen 650 mg 06/30/18 18:26 Tylenol - PO Q6H PRN PAIN LEVEL 1-5 Ascorbic Acid 500 mg 07/01/18 10:00 07/01/18 10:30 Vitamin C - PO 500 mg DAILY [facility] Administration Aspirin 81 mg 07/01/18 10:00 07/01/18 10:30 Asa - PO 81 mg DAILY [facility] Administration Atorvastatin Calcium 40 mg 06/30/18 22:00 07/01/18 02:23 Lipitor - PO Not Given HS [facility] Bicalutamide 50 mg 07/01/18 10:00 07/01/18 10:29 Casodex - PO 50 mg DAILY [facility] Administration Bisacodyl 5 mg 07/03/18 10:00 Dulcolax - PO Q3D@1000 [facility] Calcium Acetate 667 mg 07/01/18 08:00 07/01/18 08:43 Phoslo - PO 667 mg TIDCM [facility] Administration Collagenase 1 applic 06/30/18 22:00 07/01/18 10:35 Santyl - TP 1 applic BID [facility] Administration Protocol Epoetin Ehsan 3,000 unit/ 5,000 unit 07/01/18 16:00 Epoetin Ehsan 2,000 unit IVPUSH 07/01/18 16:01 ONCE ONE Ferrous Sulfate 325 mg 07/01/18 10:00 07/01/18 10:31 Feosol - PO 325 mg DAILY [facility] Administration Heparin Sodium (Porcine) 1,000 unit 07/01/18 11:06 Heparin - IVPUSH 07/01/18 11:07 ONCE ONE Sodium Chloride 250 mls @ 3,000 mls/hr 06/30/18 22:56 Normal Saline - IV 07/01/18 22:55 PRN PRN Hypotension during Dialysis Sodium Chloride 250 mls @ 3,000 mls/hr 07/01/18 11:06 Normal Saline - IV 07/02/18 11:06 PRN PRN Hypotension during Dialysis Iron Sucrose 100 mg/ Sodium 100 mls @ 200 mls/hr 07/01/18 11:20 Chloride IVPB 07/01/18 11:49 ONCE ONE Multi-Ingredient Lotion 1 applic 06/30/18 22:00 07/01/18 06:15 Eucerin (Small Jar) - TP 1 applic TID [facility] Administration Multivit/Ca Carb/B Cmplx/FA/Prenat 1 tablet 07/01/18 10:00 07/01/18 10:29 Nephro-Francis - PO 1 tablet DAILY [facility] Administration Multivitamins/Minerals/Vitamin C 1 tab 07/01/18 10:00 07/01/18 10:30 Tab-A-Vit - PO 1 tab DAILY [facility] Administration Nystatin 1 applic 06/30/18 22:00 07/01/18 10:35 Mycostatin Ointment - TP 1 applic BID [facility] Administration Ranitidine HCl 150 mg 07/01/18 10:00 07/01/18 10:30 Zantac - PO 150 mg DAILY [facility] Administration Senna 1 tab 06/30/18 22:00 07/01/18 02:24 Senna - PO Not Given HS [facility] Zinc Sulfate 220 mg 07/01/18 10:00 07/01/18 10:31 Orazinc - PO 220 mg DAILY [facility] Administration Last Vital Signs Temp Pulse Resp BP Pulse Ox 99.2 F 95 H 20 138/75 98 07/01/18 10:00 07/01/18 10:00 07/01/18 10:00 07/01/18 10:00 06/30/18 21:00 cardio s1s2 pulm clear Gi soft ext neg edema neuro confused Impression 1. ESRD 2. clotted permacath 3. hyperkalemia 4. prostate cancer 5. dementia 6. cva Plan - pt on MWF HD schedule, will dialyze today before discharge - will give venofer and epogen for anemia - discussed with medical team - monitor bp - pt has HD set up as outpt, spoke to facility
--- NOTE | 2018-07-01 11:43 | DS ---
Physical Examination Vital Signs: Vital Signs Temperature 99.2 F 07/01/18 10:00 Pulse Rate 95 H 07/01/18 10:00 Respiratory Rate 20 07/01/18 10:00 Blood Pressure 138/75 07/01/18 10:00 O2 Sat by Pulse Oximetry (%) 98 06/30/18 21:00 Findings/Remarks: Patient seen and examined. Chart reviewed. Awake and comfortable. Denies pain. Constitutional: Yes: No Distress, Calm Neck: Yes: Supple Cardiovascular: Yes: Regular Rate and Rhythm Respiratory: Yes: Diminished Gastrointestinal: Yes: Soft Labs: CBC, BMP 06/30/18 07:00 07/01/18 08:20 Discharge Summary Reason For Visit: DIALYSIS CATHETER CLOT OR FAILURE Current Active Problems Dialysis catheter clot or failure (Acute) Hospital Course: 77 year old male presents to the ED from [facility] for malfunctioning permacath. Permanent catheter exchanged by Dr. De La Cruz now working well Discussed with ceramic coater also today Dialyzed today and after that--- discharge back to assisted Patient to have dialysis as per schedule in the assisted medications also reconciled Discussed with nursing staff stable for discharge Condition: Stable - Instructions Referrals: Donte Jasmine MD [Primary Care Provider] - Disposition: NURSING HOME FACILITY - Home Medications Comprehensive Discharge Medication List: Ambulatory Orders Acetaminophen [Acetaminophen 8 Hour] 650 mg PO Q6H PRN 06/29/18 Ascorbic Acid [Vitamin C -] 500 mg PO DAILY 06/29/18 Aspirin [ASA -] 1 tab PO DAILY 06/29/18 Atorvastatin Ca [Lipitor] 40 mg PO HS 06/29/18 Bicalutamide 50 mg PO DAILY 06/29/18 Bisacodyl [Correctol] 5 mg PO Q72H 06/29/18 Calcium Acetate [Phoslo -] 667 mg PO TIDCM 06/29/18 Collagenase Clostridium Hist. [Santyl] 1 applic TP BID 06/29/18 Famotidine 20 mg PO DAILY 06/29/18 Ferrous Sulfate 325 mg PO DAILY 06/29/18 Mineral Oil/Petrolat,Wht/Water [Eucerin (Small Jar) -] 1 applic TP TID 06/29/18 Multivitamins [Multivit ([facility] Formul[facility])] 1 tab PO DAILY 06/29/18 Nystatin Ointment [Mycostatin Ointment -] 1 applic TP BID 06/29/18 Sennosides [Senna] 8.6 mg PO HS 06/29/18 Vitamin B Comp W-C [Nephro-Francis -] 1 tablet PO DAILY 06/29/18 Zinc Sulfate 220 mg PO DAILY 06/29/18
--- NOTE | 2018-07-01 12:15 | PN ---
Progress Note (short form) - Note Progress Note: surgery POD #1 permacath exchange right IJ. THe catheter was used for dialysis last night without any problems. Patient seen and examined at bedside. Patient resting comfortably with no complaints PC site dressing clean, dry intact with surrounding tissue intact and no tracking erythema, edema, sq emphysema, collection or d/c. POD #1 PC exchange, functioning and patient doing well Cleared from vascular surgery at this time. May continue to use PC per renal and medical mngt. f/u with Dr. De La Cruz as out patient Evaluation and plan discussed with Dr De La Cruz.
[2018-07-01 12:47] VITALS: TEMP 98.6
[2018-07-01] MEDS ORDERED: EPOETIN ALFA 3,000 UNIT, EPOETIN ALFA 2,000 UNIT IVPUSH ONE (13:00)
[2018-07-01] MEDS ORDERED: HEPARIN NA (PORCINE) 5,000 UNITS/ML 1ML VIAL IVPUSH ONE (13:00)
[2018-07-01] MEDS ORDERED: SODIUM CHLORIDE 250 ML IV PRN (13:00)
[2018-07-01] MEDS ORDERED: IRON SUCROSE INJECTION 100 MG in SODIUM CHLORIDE 95 ML IVPB ONE (13:00)
[2018-07-01 15:40] VITALS: BP 102/49; PULSE 72
--- NOTE | 2018-07-01 17:01 | PN ---
Progress Note (short form) - Note Progress Note: s: alert, appears comfortable, not communicating Current Medications Acetaminophen (Tylenol -) 650 mg PO Q6H PRN PRN Reason: PAIN LEVEL 1-5 Ascorbic Acid (Vitamin C -) 500 mg PO DAILY [facility] Last Admin: 07/01/18 10:30 Dose: 500 mg Aspirin (Asa -) 81 mg PO DAILY [facility] Last Admin: 07/01/18 10:30 Dose: 81 mg Atorvastatin Calcium (Lipitor -) 40 mg PO HS [facility] Last Admin: 07/01/18 02:23 Dose: Not Given Bicalutamide (Casodex -) 50 mg PO DAILY [facility] Last Admin: 07/01/18 10:29 Dose: 50 mg Bisacodyl (Dulcolax -) 5 mg PO Q3D@1000 ANKIT Calcium Acetate (Phoslo -) 667 mg PO TIDCM [facility] Last Admin: 07/01/18 12:34 Dose: Not Given Collagenase (Santyl -) 1 applic TP BID [facility]; Protocol Last Admin: 07/01/18 10:35 Dose: 1 applic Ferrous Sulfate (Feosol -) 325 mg PO DAILY [facility] Last Admin: 07/01/18 10:31 Dose: 325 mg Sodium Chloride (Normal Saline -) 250 mls @ 3,000 mls/hr IV PRN PRN PRN Reason: Hypotension during Dialysis Stop: 07/01/18 22:55 Sodium Chloride (Normal Saline -) 250 mls @ 3,000 mls/hr IV PRN PRN PRN Reason: Hypotension during Dialysis Stop: 07/02/18 12:59 Multi-Ingredient Lotion (Eucerin (Small Jar) -) 1 applic TP TID [facility] Last Admin: 07/01/18 13:17 Dose: Not Given Multivit/Ca Carb/B Cmplx/FA/Prenat (Nephro-Francis -) 1 tablet PO DAILY [facility] Last Admin: 07/01/18 10:29 Dose: 1 tablet Multivitamins/Minerals/Vitamin C (Tab-A-Vit -) 1 tab PO DAILY [facility] Last Admin: 07/01/18 10:30 Dose: 1 tab Nystatin (Mycostatin Ointment -) 1 applic TP BID [facility] Last Admin: 07/01/18 10:35 Dose: 1 applic Ranitidine HCl (Zantac -) 150 mg PO DAILY [facility] Last Admin: 07/01/18 10:30 Dose: 150 mg Senna (Senna -) 1 tab PO HS [facility] Last Admin: 07/01/18 02:24 Dose: Not Given Zinc Sulfate (Orazinc -) 220 mg PO DAILY [facility] Last Admin: 07/01/18 10:31 Dose: 220 mg Vital Signs: Vital Signs Period Temp Pulse Resp BP Sys/Estevez Pulse Ox Last 24 Hr 97.7 F-99.2 F 72-95 15-23 90-138/42-75 96-100 Constitutional: Yes: No Distress, Calm Eyes: Yes: Conjunctiva Clear, EOM Intact HENT: Yes: Atraumatic, Normocephalic Neck: Yes: Supple, Trachea Midline Respiratory: Yes: CTA Bilaterally (auscultated anteriorly, poor effort) Gastrointestinal: Yes: Normal Bowel Sounds, Soft Renal/: Yes: WNL Cardiovascular: Yes: Pulse Irregular JVD: No Carotid Bruit: No Heart Sounds: Yes: S1, S2 Edema: No Peripheral Pulses WNL: Yes Peripheral Pulses: 2+ Left Doralis Pedis, 2+ Right Dorsalis Pedis Integumentary: No: Jaundice Neurological: Yes: Alert, Oriented Psychiatric: Yes: Alert Assessment/Plan EKG afib, rate controlled echo 06/2018 EF 50%, mild MS, RV mild to mod dilated, RV function mildly reduced , LA severely dilated, RA mod dilated, mild MR, mild ao root dilation Afib - [id number] score of 4, anticoagulation indicated, was on aspirin, unclear if this is new diagnosis - rate controlled not on nitesh blocking agents - echocardiogram shows severely dilated LA - given fall risk (recent fall with hip fx) need to address risks/benefits of anticoagulation in this patient with ESRD. hold for now as pt post op from catheter replacement. continue aspirin for now, recommend outpatient cardiology follow up ESRD on HD, hyperkalemia - plan for HD, catheter replaced yesterday HLD - continue statin
[2018-07-03 06:40] LABS: HBSAG SCREEN Negative (Negative); HEP A AB, IGM Negative (Negative); HEP B CORE AB, TOT Negative (Negative)
[2018-07-03] MEDS ORDERED: BISACODYL 5 MG TABLET.DR (FP) PO SCH (10:00)
== END 2018-07-01 18:14 | DRG 314 ==
LOC: JER 14:13 → JERBED 17:48 → J6S 06-30 04:27
PROVIDERS: ADMIT Internal Medicine; ATTEND Internal Medicine
PROC: 05HM33Z Insertion of Infusion Device into Right Internal Jugular Vein, Percutaneous Approach (ICD-10-PCS; 2018-06-30)
PROC: 5A1D70Z Performance of Urinary Filtration, Intermittent, Less than 6 Hours Per Day (ICD-10-PCS; 2018-06-30)
PROC: 05PY33Z Removal of Infusion Device from Upper Vein, Percutaneous Approach (ICD-10-PCS; principal; 2018-06-30 16:30)
DX: T82.49XA Other complication of vascular dialysis catheter, initial encounter (principal); N18.6 End stage renal disease; C79.11 Secondary malignant neoplasm of bladder; Y83.9 Surgical procedure, unspecified as the cause of abnormal reaction of the patient, or of later complication, without mention of misadventure at the time of the procedure; F03.90 Unspecified dementia, unspecified severity, without behavioral disturbance, psychotic disturbance, mood disturbance, and anxiety; I48.91 Unspecified atrial fibrillation; C61 Malignant neoplasm of prostate; E87.5 Hyperkalemia; E78.5 Hyperlipidemia, unspecified; K21.9 Gastro-esophageal reflux disease without esophagitis; D50.9 Iron deficiency anemia, unspecified; K59.00 Constipation, unspecified; B35.3 Tinea pedis
CPT/HCPCS: 36415; 71045-TC-FY; 80048; 80053; 85025; 85027; 85610; 86704; 86706; 86708; 86803; 86850; 86900; 86901; 87040; 87340; 90670; 93005; 93010; 93306-TC; 94760; 99285-25; J0885; J1644; J1756